=== PATIENT | male | born 1950 | race Caucasian/White ===

== ENCOUNTER 2016-10-26 07:36 | Emergency (ER) | payer MEDICARE, MEDICAID ==
[~2016-10-26] VITALS: Ht 177.8 cm; Wt 72.7 kg
[~2016-10-26 07:36] MED LIST: HYDR-4003 PO; PREG75CA PO
--- NOTE | 2016-10-26 07:38 | ED.REPORT ---
HPI-Chest Pain 40 and Over Date of Service Oct 26, 2016 ED Provider: The patient is a 66 year old male with history of hypertension and recurrent pneumonia, who presents to the emergency department complaining of chest pain and shortness of breath that began last night. The patient is taking Suboxone and was on the strips but recently changed to a generic pill. He states that he has been using more than he was prescribed to get the same relief he was previously getting on the strips. His last dose was yesterday afternoon. After further questioning the patient admits to pain all over that started yesterday evening, goosebumps, nausea, and cough. He denies fever, nasal congestion, vomiting, or diarrhea. He drinks alcohol occasionally and smokes tobacco daily. Nursing Notes Stated Complaint: CHEST PAIN/SOB Nursing Notes Reviewed: Yes Allergies: Coded Allergies: No Known Allergies (Verified , 11/12/13) Uncoded Allergies: No Known Allergies (Allergy, Severe, 05/05/05) Scheduled Pregabalin (Lyrica) 75 Mg Capsule 75 MG PO HS Scheduled PRN Hydrocodone-Acetaminophen 5-325 mg (Hydrocodone-Acetaminophen 5-325 mg) 1 Each Tablet 1-2 TABLET PO Q4H PRN PRN For Pain General Time Seen by MD: 07:38 Chief Complaint Chest pain, Shortness of breath Hx Obtained From: Patient Arrived By: Walk-in Sudden in Onset?: Yes Onset Occurred: Yesterday Symptom Duration: Since onset Location: : Chest left: Chest right: Substernal Quality: Painful Severity: Current: Moderate Severity: Maximum: Moderate Recent Healthcare: No recent doctor visit, No recent hospitalization Similar Sx Previous: No Past Medical History Past Medical History Frequent pneumonias Reports: Hypertension Past Surgical History Cervical fusion Family History Noncontributory Smoking History Current Every Day Smoker Social History Alcohol Use: "Social" Other Social History: , Local resident Ambulatory Status Independent Review of Systems Review of Systems Note: +goosebumps Constitutional: Denies: Fever Respiratory: Reports: Non-productive cough, Shortness of breath Cardiovascular: Reports: Chest pain GI: Reports: Abdominal pain, Nausea, Denies: Diarrhea, Vomiting Musculoskeletal: Reports: Myalgia Complete sys rev & neg: except as marked. Physical Exam Initial Vital Signs Vital Signs (First) Date Time Temp Pulse Resp B/P Pulse Ox O2 Delivery O2 Flow Rate FiO2 10/26/16 07:41 36.8 97 19 178/84 98 Room Air 10/26/16 08:48 2 Initial VS: Reviewed Head / Eyes: Atraumatic, Normocephalic, PERRL ENT: Mucous membranes moist, Conjunctiva normal, No scleral icterus Neck: Supple, Non-tender, Full range of motion Lymphatic: No lymphadenopathy Extremities: Vascular intact, Neuro intact, No swelling, No tenderness Skin: Warm, Dry, No cyanosis Neurologic: Alert, Oriented, Nonfocal Psychiatric: Mood/affect normal, Behavior normal, Normal thought content General/Constitutional: Awake, Alert, No acute distress, Cooperative Respiratory / Chest: Atraumatic, Breath sounds NL, Breath sounds = bilat, No respiratory distress, No rales, No rhonchi, No wheezing, No stridor Left-sided chest wall tenderness Cardiovascular: Regular rhythm, Heart sounds NL, No murmurs, No rubs, Peripheral circulation NL, Pulses = bilaterally, No gross BP differential Heart Rate / Rhythm: Positive: Tachycardia Abdomen: Atraumatic, Soft, Non-tender, McBurney's non-tender, No guarding, No rebound, BS normoactive, No distention, No hernia, No palpable mass Interpretation & Diagnostics Lab Results Interpretation Result Diagram: 10/26/16 0747 10/26/16 0747 Test 10/26/16 07:47 White Blood Count 9.1th/mm3 (3.8-10.1) Red Blood Count 5.65mil/mm3 (4.40-5.80) Hemoglobin 16.3g/dL (13.8-17.2) Hematocrit 48.7% (41.0-50.0) Mean Corpuscular Volume 86.2fL (81-100) Mean Corpuscular Hemoglobin 28.8pg (27.0-35.0) Mean Corpuscular Hemoglobin Concent 33.5% (32.0-37.0) Red Cell Distribution Width 13.7% (12.3-15.4) Platelet Count 265bil/L (150-400) Neutrophils (%) (Auto) 72.9% (40-74) Lymphocytes (%) (Auto) 20.4% (14-46) Monocytes (%) (Auto) 4.6% (4-12) Eosinophils (%) (Auto) 1.8% (0-5) Basophils (%) (Auto) 0.1% (0-3) D-Dimer < 0.5mg/L (<0.50) Sodium Level 143mEq/L (134-144) Potassium Level 4.1mEq/L (3.5-5.2) Chloride Level 104mEq/L (97-108) Carbon Dioxide Level 24mmol/L (18-29) Blood Urea Nitrogen 9mg/dL (8-27) Creatinine 0.55mg/dL (0.76-1.27) Estimat Glomerular Filtration Rate 159mL/min (>59) Glucose Level 106mg/dL (60-99) Calcium Level 9.5mg/dL (8.5-10.1) Magnesium Level 2.1mg/dL (1.6-2.6) Total Bilirubin 1.4mg/dL (0.0-1.2) Aspartate Amino Transf (AST/SGOT) 16U/L (0-50) Alanine Aminotransferase (ALT/SGPT) 11U/L (0-44) Alkaline Phosphatase 57U/L (25-160) Troponin T < 0.010ug/L (0.0-0.011) Total Protein 7.8g/dL (6.4-8.4) Albumin 4.6g/dL (3.4-5.0) ECG Interpretation ECG Interpretation: Sinus rhythm with a rate of 81 Time: 08:21 Interpreted by: ED physician X-Ray Chest Interpretation Chest Xray Interpretation: IMPRESSION: No acute disease is seen in the upright portable chest. Cause of chest pain is not identified. Dictated by: Yo Muhammad M.D. on 10/26/2016 at 8:36 Interpretation / Wet Read by: Interpret - Radiologist Re-Eval/Medical Decision Med Decision/Clinical Course Overall symptoms are more consistent with withdrawal of buprenorphine and due to next years. However, the patient's advanced age and comorbidities to a modest workup for cardiopulmonary causes. Workup is negative and after giving the patient a buprenorphine while in the ER symptoms resolved. Strict return and follow-up precautions given. Source of Hx: Old records Time of Eval: 08:48 Re-Evaluation/Progress Note: Rechecked the patient. His pain is completely resolved after he was given Buprenorphine. Time of Eval: 09:13 Re-Evaluation/Progress Note: Rechecked the patient. Discussed plan for discharge. Counseled Regarding: Diagnosis, Lab results, Need for follow-up, When/why to return to ED Discharge & Departure Primary Impression: Medication withdrawal Substance type: opioid Qualified Code: F11.23 - Opioid dependence with withdrawal Disposition: Home Discharge Condition All VS Reviewed: Yes Condition: Stable Additional Instructions: Thank you for entrusting us with your care today. Your labs, EKG, and chest x- ray today are reassuring. I believe your symptoms are related to withdrawal from your medication. You need to followup with your regular physician who prescribes this medication. Return to the emergency department for any new or concerning symptoms. Referrals: Tj Avilez MD (PCP) Scribe Attestation Portions of this note were transcribed by Katie Carpio. I, Dr. Horne personally performed the history, physical exam and medical decision-making; I reviewed and confirmed the accuracy of the information in the transcribed note. Signed by: Lavinia Oconnor, 10/26/2016 and 0915. copies to: Tj Avilez MD, Timothy S DO Oct 26, 2016 07:38 Katie Carpio Oct 26, 2016 07:42
[2016-10-26 07:41] VITALS: BP 178/84; PULSE 97; RESP 19; O2SAT 98
[2016-10-26] MEDS ORDERED: Buprenorphine 2 mg SL Tablet SL ONE (07:50)
[2016-10-26 08:06] LABS: BASOPHILS % (AUTO) 0.1 % (0-3); EOSINOPHILS % (AUTO) 1.8 % (0-5); MONOCYTES % (AUTO) 4.6 % (4-12); Mean Corpuscular Hemoglobin 28.8 pg (27.0-35.0); Mean Corpuscular Volume 86.2 fL (81-100); NEUTROPHILS % (AUTO) 72.9 % (40-74); Platelet Count 265 bil/L (150-400)
--- NOTE | 2016-10-26 08:38 | DRSVH ---
PROCEDURE: X-RAY CHEST ONE VIEW, PORTABLE ([id number]) INDICATIONS: cp TECHNIQUE: One view of the chest was acquired. COMPARISON: None. FINDINGS: Surgical changes and devices: hide trimmer leads and oxygen tubing is seen over the chest. As been previous anterior lower cervical spine surgery is noted by a plate and screws. Lungs and pleura: No pleural effusions or pneumothorax. Lungs are clear. Mediastinum: Mediastinal contours appear normal. Heart size is normal. Bones and chest wall: No suspicious bony lesions. Overlying soft tissues appear unremarkable. IMPRESSION: No acute disease is seen in the upright portable chest. Cause of chest pain is not identi fied. Dictated by: Yo Muhammad M.D. on 10/26/2016 at 8:36 Approved by: Yo Muhammad M.D. on 10/26/2016 at 8:36
[2016-10-26 08:48] VITALS: BP 150/78; PULSE 88; RESP 17; O2SAT 99
[2016-10-26 09:00] LABS: Magnesium 2.1 mg/dL (1.6-2.6)
[2016-10-26 09:01] LABS: TROPONIN T < 0.010 ug/L (0.0-0.011)
[2016-10-26 10:00] VITALS: BP 136/77; PULSE 75; RESP 12; O2SAT 97
== END 2016-10-26 10:01 | disposition home or self-care (01) ==
LOC: SED 07:36
DX: F11.23 Opioid dependence with withdrawal (principal); I10 Essential (primary) hypertension; F17.200 Nicotine dependence, unspecified, uncomplicated

== ENCOUNTER 2017-01-11 06:05 | Emergency (ER) | payer MEDICARE, MEDICAID ==
[~2017-01-11] VITALS: Ht 177.8 cm; Wt 70.0 kg
[2017-01-11 06:12] VITALS: BP 161/89; PULSE 84; RESP 16; O2SAT 97
--- NOTE | 2017-01-11 06:33 | ED.REPORT ---
HPI-Abd Pain M 40 and Over Date of Service Jan 11, 2017 ED Provider: Isael Horne DO Pt is a 66 y.o. male with a hx of HTN who presents to the ED c/o constipation onset 3 days ago. He reports associated mild intermittent abdominal pain, described as cramping, nausea, belching, and the sense of rectal fullness and pressure. He states that when he attempts to have a BM and wipes he notices spots of blood on the toilet paper. He claims that if feels like someone has "kicked him in the rectum". He denies vomiting. Suppositories and laxatives have not provided him any relief. Nursing Notes Stated Complaint: ABDOMINAL PAIN Chief Complaint: Male Abdominal Pain Nursing Notes Reviewed: Yes Allergies: Coded Allergies: No Known Allergies (Verified , 11/12/13) Uncoded Allergies: No Known Allergies (Allergy, Severe, 05/05/05) Scheduled Pregabalin (Lyrica) 75 Mg Capsule 75 MG PO HS Scheduled PRN Hydrocodone-Acetaminophen 5-325 mg (Hydrocodone-Acetaminophen 5-325 mg) 1 Each Tablet 1-2 TABLET PO Q4H PRN PRN For Pain Magnesium Hydroxide (Milk of Magnesia) 400 Mg/5 Ml Oral.susp 30 ML PO QID PRN PRN For Constipation adjust to between 1-2 times a day for soft daily BMs General Time Seen by MD: 06:20 Chief Complaint Constipation Hx Obtained From: Patient Arrived By: Walk-in Sudden in Onset?: Yes Onset Occurred: 3 days ago Symptom Duration: Since onset Past Medical History Past Medical History Frequent pneumonias Reports: Hypertension Past Surgical History Cervical fusion Family History Noncontributory Smoking History Current Every Day Smoker Social History Alcohol Use: "Social" Other Social History: , Local resident Ambulatory Status Independent Review of Systems Rectal bleeding, minimal GI: Reports: Abdominal pain, Belching, Constipation, Nausea, Rectal pain, Denies: Vomiting Complete sys rev & neg: except as marked. Physical Exam Initial Vital Signs Vital Signs (First) Date Time Temp Pulse Resp B/P Pulse Ox O2 Delivery O2 Flow Rate FiO2 01/11/17 06:12 37.0 84 16 161/89 97 Room Air Initial VS: Reviewed Head / Eyes: Atraumatic, Normocephalic Extremities: Vascular intact, Neuro intact Skin: Warm, Dry, No cyanosis Neurologic: Alert, Oriented, Nonfocal Psychiatric: Mood/affect normal, Behavior normal, Normal thought content General/Constitutional: Awake, Alert, No acute distress, Well appearing, Well developed, Well hydrated, Well nourished, Not toxic appearing Respiratory / Chest: Atraumatic, Breath sounds NL, No respiratory distress Cardiovascular: Heart rate NL, Regular rhythm, Peripheral circulation NL Abdomen: Atraumatic, Soft, Non-tender, No guarding, No rebound, No distention Back: Atraumatic Rectum / Perineum: Atraumatic, No gross blood, No hemorrhoids Firm brown stool present Re-Eval/Medical Decision Med Decision/Clinical Course Generally well-appearing 66-year-old with reported constipation, hard stool in the rectal vault not amenable to digital disimpaction. Abdominal exams are serially benign. Given magnesium citrate and enema. Declines further diagnostic workup at this time. Strict return and follow-up precautions given including milk of magnesia and enemas. Source of Hx: Old records Time of Eval: 07:39 Re-Evaluation/Progress Note: Pt rechecked. He declines further work-up would like to be released with outpatient bowel regimen. Counseled Regarding: Diagnosis, Lab results, Need for follow-up, When/why to return to ED Discharge & Departure Primary Impression: Constipation Disposition: Home Vital Signs - All Vital Signs Date Time Temp Pulse Resp B/P Pulse Ox O2 Delivery O2 Flow Rate FiO2 01/11/17 08:02 85 16 138/94 96 Room Air 01/11/17 07:29 36.8 82 16 139/81 96 Room Air 01/11/17 06:12 37.0 84 16 161/89 97 Room Air )( All Prior VS Reviewed: Yes Condition: No Change Additional Instructions: Use milk of magnesia up to every 6 hours until you have had a soft bowel movement. At around noon today if you have not had a significant BM, use 2 Fleet's enemas one hour apart. You can decrease the milk of magnesia to once a day as needed to help with regular bowel movements. Return to the ER if you develop a high fever, persistent vomiting, persistent or severe abdominal pain, or any other concerns. You should be seen at some point in the future for a screening colonoscopy. Referrals: Tj Avilez MD (PCP) Scribe Attestation Portions of this note were transcribed by Jake Amato. I, Dr. Horne personally performed the history, physical exam and medical decision-making; I reviewed and confirmed the accuracy of the information in the transcribed note. Signed by: Lavinia Eugene, 01/11/17 and 0802. copies to: Tj Avilez MD, Timothy S DO Jan 11, 2017 06:33 JAKE AMATO Jan 11, 2017 06:41
[2017-01-11 07:29] VITALS: BP 139/81; PULSE 82; RESP 16; O2SAT 96
[2017-01-11] MEDS ORDERED: MAGN400O4 PO (07:50)
[2017-01-11 08:02] VITALS: BP 138/94; PULSE 85; RESP 16; O2SAT 96
== END 2017-01-11 08:00 | disposition home or self-care (01) ==
LOC: SED 06:05
DX: K59.00 Constipation, unspecified (principal); I10 Essential (primary) hypertension; F17.200 Nicotine dependence, unspecified, uncomplicated